=== PATIENT | female | born 1965 | race African-American/Black ===

== ENCOUNTER 2025-10-26 11:40 | Emergency (ER) | payer OTHER, SELFPAY ==
[2025-10-26 11:54] VITALS: BP 110/74; PULSE 91; RESP 16; TEMP 35.9; O2SAT 98
--- NOTE | 2025-10-26 12:07 | ED.SKABFB ---
HPI - Skin/Abscess/Foreign Bdy General Chief complaint: Skin/Abscess/Foreign Body Stated complaint: Rash Time Seen by Provider: 10/26/25 12:01 Source: patient and RN notes reviewed Mode of arrival: ambulatory Limitations: no limitations History of Present Illness HPI narrative: 59-year-old female patient history of asthma prediabetes complains of severely pruritic rash to the bilateral thighs and forearms x2 days, worse today. She has tried Benadryl and hydrocortisone without improvement. Denies use of new products, medications, new foods or household exposures. Related Data Home Medications ?Medication ?Instructions ?Recorded ?Confirmed ?Last Taken ?Type albuterol sulfate 2.5 mg/3 mL 2.5 mg inhalation PRN wheezing 10/26/25 10/26/25 Unknown History (0.083 %) solution for nebulization bupropion HCl 150 mg tablet,12 hr 150 mg PO QPM 10/26/25 10/26/25 Unknown History sustained-release ergocalciferol (vitamin D2) 1,250 50,000 unit PO DAILY 10/26/25 10/26/25 Unknown History mcg (50,000 unit) capsule ipratropium bromide 0.02 % 10/26/25 Unknown History solution for inhalation metformin 500 mg tablet 500 mg PO BID 10/26/25 10/26/25 Unknown History rosuvastatin 5 mg tablet 5 mg PO DAILY 10/26/25 10/26/25 Unknown History Allergies Allergy/AdvReac Type Severity Reaction Status Date / Time montelukast Allergy Mild RASH Verified 10/26/25 11:48 Penicillins Allergy Unknown unknown Verified 10/26/25 11:48 PMFSH Past Medical History Medical History (Updated 10/26/25 @ 12:12 by Charlene Spencer, [employer]PERVIS[employer], [employer]) Pre-diabetes Asthma Comments At time of signature, I have reviewed and agree with nursing past medical, surgical, social and family history unless otherwise noted. Please see nursing chart for further information. There is no relevant family history pertinent to the presenting complaint Exam Narrative: GENERAL: Well-appearing, well-nourished, and in no acute distress. HEAD: Normocephalic, atraumatic. EYES: EOMI. No redness or drainage. Conjunctivae normal. ENT: Mucous membranes pink and moist. NECK: Normal AROM. CHEST: No respiratory distress. EXTREMITIES: Normal range of motion. No edema. SKIN: Warm, dry. Capillary refill normal. Normal skin turgor. Large patches of use of erythematous maculopapular rash to the bilateral inner thighs extending to the calves as well as bilateral forearms. NEURO: No focal deficits. Alert and oriented x3. Gait steady. PSYCH: Normal affect. No signs of depression or anxiety. Course Course Level of Care: Express Care Visit Vital Signs Vital signs: Vital Signs Temperature 96.7 F L 10/26/25 11:54 Pulse Rate 91 10/26/25 11:54 Respiratory Rate 16 10/26/25 11:54 Blood Pressure 110/74 10/26/25 11:54 Pulse Oximetry 98 10/26/25 11:54 Temperature 96.7 F L 10/26/25 11:54 Pulse Rate 91 10/26/25 11:54 Respiratory Rate 16 10/26/25 11:54 Blood Pressure 110/74 10/26/25 11:54 Pulse Oximetry 98 10/26/25 11:54 Reviewed MDM MDM Narrative Medical decision making narrative: 59-year-old female patient history of asthma prediabetes complains of severely pruritic rash to the bilateral thighs and forearms x2 days, worse today. She has tried Benadryl and hydrocortisone without improvement. Denies use of new products, medications, new foods or household exposures. Upon exam,Large patches of use of erythematous maculopapular rash to the bilateral inner thighs extending to the calves as well as bilateral forearms. Rash is consistent with contact dermatitis. Will treat firstly with dose of IM dexamethasone. Patient will start oral prednisone tomorrow. Recommend continuing oral antihistamine how but switching to nonsedating such as Zyrtec. Patient agrees with plan. Vital signs stable. Anticipatory guidance given. Differential Diagnosis Differential Diagnosis: Contact dermatitis, medication reaction viral exanthem, impetigo, tinea Critical Care Time Critical Care Time Critical Care Time: No Discharge Plan Discharge Clinical Impression: Contact dermatitis Qualifiers: Contact dermatitis type: unspecified Contact dermatitis trigger: unspecified trigger Qualified Code(s): L25.9 - Unspecified contact dermatitis, unspecified cause Patient Disposition: Home Condition: Stable Instructions: Contact Dermatitis (ED) Additional Instructions: You have been given your 1st dose of steroids today in an injection. Please start the prednisone tomorrow morning and take as directed. Continue an antihistamine such as Zyrtec, Claritin, or Parris, which are nonsedating. Follow-up with your PCP in 3 days if symptoms are not improving. Go to the ER immediately if symptoms worsen to include facial swelling, shortness of breath, or difficulty swallowing. Patient Language: Khmer Prescriptions: New prednisone 50 mg tablet 50 mg PO DAILY 4 Days Qty: 4 0RF No Action albuterol sulfate 2.5 mg /3 mL (0.083 %) solution for nebulization 2.5 mg inhalation PRN ergocalciferol (vitamin D2) 1,250 mcg (50,000 unit) capsule 50,000 unit PO DAILY metformin 500 mg tablet 500 mg PO BID ipratropium bromide 0.02 % solution rosuvastatin 5 mg tablet 5 mg PO DAILY bupropion HCl 150 mg tablet sustained-release 12 hr 150 mg PO QPM Follow-up/Referrals: PHYSICIAN,TRIM MECHANIC [Primary Care Provider, Internal Medicine] Time of Disposition: 12:15
[2025-10-26] MEDS: dexAMETHasone SOD PHOS INJ 10 MG/ML 1 ML VIAL IM (12:13)
== END 2025-10-26 12:23 | disposition home or self-care (01) ==
PROVIDERS: Emergency Provider Nurse Practitioner
DX: L25.9 Unspecified contact dermatitis, unspecified cause (principal); R73.03 Prediabetes; J45.909 Unspecified asthma, uncomplicated
CPT/HCPCS: 96372; 99203; G0463; J1100